=== PATIENT | female | born 1930 | race Caucasian/White ===

== ENCOUNTER → 2017-10-14 | Outpatient (CLI) | payer MEDICARE, OTHER ==
[~2017-10-14] MED LIST: CENTRUM1 TAB PO; LIPITOR 10MG10 MG PO; LISINOPRIL10 MG PO; XANAX0.25 MG PO; ZYRTEC 10MG
== END ==
LOC: COL.LAB 14:28
DX: Z01.812 Encounter for preprocedural laboratory examination (principal)